=== PATIENT | male | born 1995 | race African-American/Black ===

== ENCOUNTER 2017-12-19 21:47 | Emergency (ER) | payer SELFPAY ==
--- NOTE | 2017-12-19 22:26 | EDPHY ---
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 Patient admits to drinking alcohol. At some point he became involved in an argument security. Police called. Patient became increasingly combative. He has placed the back the patrol car continued kicking at the windows. Patient removed and continued to be combative. He was placed in 4 point restraints. He did require multiple hands to restrain him. Officers state that the patient did not suffer any direct blows. EMS was called. On arrival patient continued to be aggressive. EMS gave him 10 mg of Haldol IM. Patient is now awake and answering questions. He knows that it is Thursday. He admits to drinking alcohol. Denies any other drug use. Patient states that he was "trippin" and became scared. Denies headache. No nausea. Is complaining of some mild contusions on his forearms. ROS: 10 point Review of Systems is negative except as noted in the HPI. PMH: Denies Social History: No smoking, positive alcohol, no recreational drug use Family History: non-contributory Physical Exam: Gen: Awake, Alert, Airway Intact HEENT: Head: Atraumatic Eyes: PERRLA, EOMI Nose: No epistaxis Mouth: Normal dentition, Airway patent Face: No deformity Neck: non-tender, no stepoff, Full ROM without pain Chest: non-tender, lungs CTA Heart: normal heart tones Abd: soft, non-tender, atraumatic Pelvis: non-tender, stable to AP and Lateral compression Back: atraumatic, no midline tenderness Ext: Patient has small contusions of bilateral forearms, no bony point tenderness. Full range of motion without any pain or discomfort. He is currently in handcuffs Skin: no rash Neuro: CN II-XII intact, Strength 5/5 in all extremities, sensation intact in all extremities - Personal History Current Tetanus Diphtheria and Acellular Pertussis (TDAP): Unsure - Medical/Surgical History Other PMH: unk - Social History Smoking Status: Unknown if ever smoked Constitutional: Initial Vital Signs Temperature (C) 36.1 C 12/19/17 21:50 Heart Rate 73 12/19/17 21:50 Respiratory Rate 16 12/19/17 21:50 Blood Pressure 111/67 12/19/17 21:50 O2 Sat (%) 100 12/19/17 21:50 O2 Delivery Mode Room Air Allergies/Adverse Reactions: Penicillins Allergy (Verified 12/19/17 22:03) Home Medications: Medication Instructions Recorded NK [No Known Home Meds] 12/19/17 Medical Decision Making ED Course/Re-evaluation: Patient is now awake and alert. He is ambulating unassisted to the bathroom. There is no evidence of head injury at this time. He is medically clear for [facility]. Departure - Departure Disposition: Law Enforcement/Court/Shelter Clinical Impression: Alcoholic intoxication, Forearm contusion Condition: Good Instructions: Alcohol Intoxication (ED), Contusion in Adults (ED) Additional Instructions: MEDICALLY CLEAR FOR INTERMEDIATE Referrals: Patient,NotPresent [Primary Care Provider] - As per Instructions
[2017-12-19 23:52] VITALS: BP 101/68
== END 2017-12-19 23:52 ==
DX: S50.11XA Contusion of right forearm, initial encounter (principal); S50.12XA Contusion of left forearm, initial encounter; F10.129 Alcohol abuse with intoxication, unspecified; W22.8XXA Striking against or struck by other objects, initial encounter; Y99.8 Other external cause status; Y93.89 Activity, other specified